=== PATIENT | male | born 1985 | race Caucasian/White ===

== ENCOUNTER 2024-06-23 08:06 | Outpatient (AMB) | payer OTHER, SELFPAY ==
--- NOTE | 2024-06-23 08:10 | A.OFFVIS_ITS ---
Intake Visit Reasons: left sided vericocele/testicular dullness Intake Note: New Patient presents for initial visit for left sided vericocele Urology Medications: none Blood Thinner: none Movers Required: No Accompanied by: Self / Same As Patient Allergies No Known Allergies Allergy (Verified 06/23/24 12:18) Medication List - Last Reconciled 06/23/24 by ANTOLIN Mederos bupropion HCl XL 150 mg PO DAILY HPI Comments Details: Shira is a very pleasant 39-year-old male patient of . He has a past medical history of depression. He presents to the office today as a new patient for varicoceles. In discussion with the patient today reports a longstanding history of varicoceles and previously followed up with a urologist over 20 years ago as they have been present for many years. He reports following up with his PCP at which time recommendations were made for urology referral for surveillance monitoring. He reports he does have discomfort left side greater than right in the scrotal area however does not feel that affects his activities of daily living. 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 He currently denies pain at this time. On exam today bilateral varicoceles are present left side greater than right otherwise no open areas, lesions, and or drainage noted. Small epididymal head cysts palpated on the left side. He otherwise denies any bothersome urinary issues. He denies urinary urgency, urinary frequency, incontinence, nocturia, hematuria, dysuria, foul smelling urine, changes to urinary stream, flank pain, fever, and or chills. He is happy with his current voiding parameters. We discussed at length potential causes of varicoceles and further treatment options. Risks and benefits of these interventions were discussed. All questions were answered. He otherwise offers no other issues or concerns at this time. [facility] Medical History Depression Review of Systems Const All systems reviewed & are unremarkable except as noted in HPI and below Physical Exam Const General: cooperative, healthy appearing, comfortable, no acute distress, well developed, alert and awake Nutritional Appearance: average body habitus Orientation/consciousness: patient oriented x3 Limitations: no limitations HEENT Head: Yes normal to inspection, Yes normocephalic and Yes atraumatic Ears: hearing grossly normal bilaterally Eyes General: appearance normal, both eyes and all related structures Neck Neck: Yes normal visual inspection and Yes trachea midline Chest Chest palpation & inspection: normal inspection of the chest Resp Effort & Inspection: normal respiratory effort and able to speak in complete sentences Cardio Rate: regular rate GI Inspection: Yes normal to inspection General: Yes no CVA tenderness Back/Spine/Pelvis Back: no CVA tenderness Skin General skin exam: no rashes or lesions noted Neuro General: patient oriented x3 Extrem General: Yes normal to inspection Psych Appearance: grossly normal and well kempt Mental Status: mental status grossly normal Speech and movement: Normal speech and movement present and Clear speech present Affect: normal affect Attitude: cooperative Thought process: Normal thought process present Thought content: Normal thought content present Insight: Fair insight present (Psych) Judgement: Fair judgement present (Psych) Assessment & Plan Assessment & Plan (1) Bilateral varicoceles: Code(s): I86.1 - Scrotal varices Category: Medical Plan Discussed at length potential causes of varicoceles as well as further treatment options; risks and benefits of these interventions were discussed. He currently denies any bothersome urinary issues. He reports be happy with current voiding parameters. He would like to continue with surveillance monitoring. Will obtain scrotal ultrasound in 6 months. Follow-up in 6 months with imaging to be completed prior; or sooner with any issues, concerns, and or questions. Orders: Orders US scrotum Today I86.1 - Scrotal varices Patient Instructions: The patient had an opportunity to ask questions regarding the treatment plan. A ll questions were answered. Physical exam, labs, and imaging were discussed and reviewed in detail. As well as risks, benefits, and discussion of treatment choices. No major barriers to understanding were identified. The patient expressed understanding and agreement with the above treatment plan. The patient was made aware they should contact our office by phone for worsening of their current condition, the appearance of new symptoms, or with any questions or concerns. Compliance is encouraged with any medications and follow up testing that is ordered. It is a privilege to be allowed the opportunity to participate in? your urological care.? Again, if you have any questions or concerns If you have any questions or concerns please do not hesitate to contact me. The office is [phone]. This note is constructed using voice recognition software. While every effort has been made to ensure accuracy high pressure boiler operator errors may have been included. Yours sincerely, EMIR Mederos Coding Level of Care Code New Pt Level 3 (79194) Diagnoses Bilateral varicoceles I86.1
== END 2024-06-23 08:54 | disposition home or self-care (01) ==
LOC: HO.HUSH 08:06
PROVIDERS: PCP Physician Assistant; Visit Provider Nurse Practitioner Family
DX: I86.1 Scrotal varices (principal)
CPT/HCPCS: 99203

== ENCOUNTER 2024-12-10 14:43 | Outpatient (REF) | payer OTHER, SELFPAY ==
--- NOTE | ~2024-12-10 | US_ITS ---
CLINICAL HISTORY: I86.1 - Scrotal varices US scrotum with Color and Duplex doppler. Comparison: None Technique: Real time sonographic imaging, including color-flow imaging, was performed by the signaler. Multiple energy conservation representative static images were saved for review. Findings: Right testicle normal size and echotexture, 4.8 x 2.6 x 3.2 cm. Normal color flow. Normal arterial and venous spectral doppler waveforms. No testicular microlithiasis or intratesticular masses. Left testicle normal size and echotexture, 4.0 x 2.1 x 2.9 cm. Normal color flow. Normal arterial and venous spectral doppler waveforms. Minimal testicular microlithiasis. No intratesticular masses. 3 mm incidental epididymal cysts on the right Small probable physiologic hydroceles Bilateral varicoceles [id number]-right varicoceles. Impression: 1. Bilateral varicoceles. 2. 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 This document has been electronically signed by: Raffy Blackwood MD on 12/11/2024 12:14:12
== END 2024-12-10 14:44 | disposition home or self-care (01) ==
LOC: HO.US 14:43
PROVIDERS: PCP Physician Assistant; Visit Provider Nurse Practitioner Family
DX: I86.1 Scrotal varices (principal)
CPT/HCPCS: 76870

== ENCOUNTER → 2024-12-10 14:46 | Outpatient (BNV) | payer OTHER, SELFPAY | PROVIDERS: PCP Physician Assistant; Visit Provider Radiology Diagnostic Radiology | DX: I86.1 Scrotal varices (principal) | CPT/HCPCS: 76870; 93975 ==

== ENCOUNTER 2024-12-21 09:36 | Outpatient (AMB) | payer OTHER, SELFPAY ==
--- NOTE | 2024-12-21 09:38 | A.OFFVIS_ITS ---
Intake Visit Reasons: 6 month follow up/ US(set) Intake Note: Patient presents for a 6 month follow up/US Urology Medications: none Blood Thinner: none Machine Feed Operator Required: No Accompanied by: Self / Same As Patient Allergies No Known Allergies Allergy (Verified 12/21/24 09:38) HPI Comments Details: Shira is a very pleasant 39-year-old male patient of . He has a past medical history of depression. He presents to the office today for follow-up of his bilateral varicoceles as well as right-sided epididymal head cysts. In discussion with the patient today reports to be doing and feeling well. He denies having had any bothersome urological issues or concerns since his last office visit here. Patient with a longstanding history of varicoceles for over 20 years. Recent scrotal imaging results reviewed with the patient today 12/11 bilateral testicles are normal in size and echotexture. 3 mm incidental epididymal head cyst on the right. Bilateral varicoceles left side greater than right. We discussed at length potential causes of varicoceles as well as epididymal head cyst as well as further interventions and risks and daquan efits of these interventions. He would like to continue with surveillance monitoring at this time. In assessment of the patient today the penis is uncircumcised in bilateral varicoceles are present left side greater than right. No open areas, lesions, and or drainage noted throughout the area. He otherwise denies any bothersome urinary issues. He denies urinary urgency, urinary frequency, incontinence, nocturia, hematuria, dysuria, foul smelling urine, changes to urinary stream, flank pain, fever, and or chills. He is happy with his current voiding parameters. We discussed at length potential causes of varicoceles and further treatment options. All questions were answered. He otherwise offers no other issues or concerns at this time. [facility] Medical History Depression Review of Systems Const All systems reviewed & are unremarkable except as noted in HPI and below Physical Exam Const General: cooperative, healthy appearing, comfortable, no acute distress, well developed, alert and awake Nutritional Appearance: average body habitus Orientation/consciousness: patient oriented x3 Limitations: no limitations HEENT Head: Yes normal to inspection, Yes normocephalic and Yes atraumatic Ears: hearing grossly normal bilaterally Eyes General: appearance normal, both eyes and all related structures Neck Neck: Yes normal visual inspection and Yes trachea midline Chest Chest palpation & inspection: normal inspection of the chest Resp Effort & Inspection: normal respiratory effort and able to speak in complete sentences Cardio Rate: regular rate GI Inspection: Yes normal to inspection General: Yes no CVA tenderness Penis: normal penis and uncircumcised Meatus: meatus normal Scrotum: Varicocele present (Bilateral left side greater than right) Testes: Testes normal Back/Spine/Pelvis Back: no CVA tenderness Skin General skin exam: no rashes or lesions noted Neuro General: patient oriented x3 Extrem General: Yes normal to inspection Psych Appearance: grossly normal and well kempt Mental Status: mental status grossly normal Speech and movement: Normal speech and movement present and Clear speech present Affect: normal affect Attitude: cooperative Thought process: Normal thought process present Thought content: Normal thought content present Insight: Fair insight present (Psych) Judgement: Fair judgement present (Psych) Results Reviewed Results Reviewed: Date of Service: 12/10/24 Procedure(s): US scrotum Technique: Real time sonographic imaging, including color-flow imaging, was performed by the department mgr. Multiple insurance verification representative static images were saved for review. Findings: Right testicle normal size and echotexture, 4.8 x 2.6 x 3.2 cm. Normal color flow. Normal arterial and venous spectral doppler waveforms. No testicular microlithiasis or intratesticular masses. Left testicle normal size and echotexture, 4.0 x 2.1 x 2.9 cm. Normal color flow. Normal arterial and venous spectral doppler waveforms. Minimal testicular microlithiasis. No intratesticular masses. 3 mm incidental epididymal cysts on the right Small probable physiologic hydroceles Bilateral varicoceles witp-[id number]-right varicoceles. Impression: 1. Bilateral varicoceles. 2. 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 Assessment & Plan Assessment & Plan (1) Bilateral varicoceles: Code(s): I86.1 - Scrotal varices Category: Medical (2) Epididymal cyst: Code(s): N50.3 - Cyst of epididymis Category: Medical Plan Discussed at length potential causes of varicoceles as well as further treatment options; risks and benefits of these interventions were discussed. He currently denies any bothersome urinary issues. He reports be happy with current voiding parameters. He would like to continue with surveillance monitoring. Follow-up in 1 year; or sooner with any issues, concerns, and or questions. Orders: Orders AMB Urinalysis Automated Today Z13.9 - Encounter for screening, unspecified Patient Instructions: The patient had an opportunity to ask questions regarding the treatment plan. All questions were answered. Physical exam, labs, and imaging were discussed and reviewed in detail. As well as risks, benefits, and discussion of treatment choices. No major barriers to understanding were identified. The patient expressed understanding and agreement with the above treatment plan. The patient was made aware they should contact our office by phone for worsening of their current condition, the appearance of new symptoms, or with any questions or concerns. Compliance is encouraged with any medications and follow up testing that is ordered. It is a privilege to be allowed the opportunity to participate in? your urological care.? Again, if you have any questions or concerns If you have any questions or concerns please do not hesitate to contact me. The office is [phone]. This note is constructed using voice recognition software. While every effort has been made to ensure accuracy manufacturing millwright errors may have been included. Yours sincerely, EMIR Mederos Coding Level of Care Code Est Pt Level 3 (69399) Diagnoses Bilateral varicoceles I86.1 Epididymal cyst N50.3
--- OUTSIDE RECORDS SUMMARY | 2024-12-21 10:27 | XMS_ITS | Clinical Summary ---
Author Organization [facility] Address [address] [place] [address] Care Team Providers Care Director Part Name Role Phone Juan Summers Primary Care Provider [phone] Source Comments PLEASE NOTE, if this patient is a minor, it may be UNLAWFUL to discuss sensitive information that is contained in these records (such as FAMILY PLANNING, MENTAL HEALTH or SUBSTANCE ABUSE) with the minor patient's parent or other person without the patient's specific authorization.[facility] Allergies No known active allergies Medications terbinafine HCL (LAMISIL) 250 mg tabletIndicatio ns:Onychomycosi s Take 1 Tablet by mouth once daily 42 Tablet 1 1 Active nicotine (NICODERM CQ) 14 mg/24 hr patchIndication s:Encounter for smoking cessation counseling Place 1 Patch onto the skin once daily (every 24 hours) 28 Patch 1 2 Active nicotine (NICODERM CQ) 14 mg/24 hr patchIndication s:Encounter for smoking cessation counseling Place 1 Patch onto the skin once daily (every 24 hours) 28 Patch 1 2 Active nicotine, polacrilex, (NICORETTE) 4 mg gum Take 1 Each by mouth as needed for smoking cessation for up to 30 days 110 Each 2 Active buPROPion XL (WELLBUTRIN XL) 150 mg 24 hr tablet Take 1 Tablet by mouth every morning for 120 days 90 Tablet 1 4 Active hydrOXYzine HCL (ATARAX) 25 mg tablet Take 1 Tablet by mouth once daily as needed for anxiety for up to 90 days 90 Tablet 4 Active Active Problems Problem Noted Date Diagnosed Date Persistent depressive disorder 12/20/2023 Major depressive disorder, r ecurrent episode, mild with anxious distress ([facility] V24) 05/22/2022 Immunizations Immunization Administration Dates Next Due INFLUENZA, SEASONAL, INJECTABLE 05/25/2015,10/23 TDAP 10/23/2013 Family History Medical History Relation Name Comments Depression Father Alcohol/Drug Abuse Mother Depression Mother Relation Name Status Comments Father Alive Mother Alive Social History Tobacco Use Types Packs/Day Years Used Date Smoking Tobacco: Every Day Cigars Smokeless Tobacco: Never Tobacco Cessation:Ready to Q uit: Not Asked; Counseling Given: Not Answered Comments:Smoke 2 cigars a day (equivalent to 8 cigarettes) Alcohol Use Standard Drinks/Week Comments Not Currently 0 (1 standard drink = 0.6 oz pur e alcohol) quit on Mar 2020 Social Connections Answer Date Recorded Connectedness 0 02/27/2022 Financial Resource Strain Answer Date R ecorded Financial Resource Strain 0 2021 Stress Answer Date Recorded Stress 0 02/27/2022 Physical Activity Answer Date Recorded Physical Activity 0 04/19/2021 Food Insecurity Answer Date Recorded Food 0 02/27/2022 Transportation Needs Answer Date Record ed Transportation 0 02/27/2022 Housing Stability Answer Date Recorded Housing 0 02/27/2022 Safety and Environment Answer Date Chandrakant rded Safety 0 02/27/2022 Utilities Answer Date Recorded Utilities 0 02/27/2022 Employment Answer Date Recorded Employment 0 04/19/2021 Sex and Gender Information Value Date Recorded Sex Assigned at Male 04/19/2021 7:54 AM PDT Legal Sex Male 10:50 AM PDT Gender Identity Male 04/19/2021 7:54 AM PDT Sexual Orientation Straight 04/19/2021 7: 54 AM PDT Last Filed Vital Signs Vital Sign Reading Time Taken Comments Blood Pressure 126/79 02/27/2022 2:38 PM EDT Pulse 78 02/27/2022 2:38 PM EDT Temperature 36.7 ??C (98.1 ??F) 02/27/2022 2:38 PM ED T Respiratory Rate 18 02/27/2022 2:38 PM EDT Oxygen Saturation 98% 02/27/2022 2:38 PM EDT Inhaled Oxygen Concentration - - Weight 78 kg (172 lb) 02/27/2022 2:38 PM EDT Height 180.3 cm (5' 11 ) 02/27/2022 2:38 PM EDT Body Mass Index 23.99 02/27/2022 2:38 PM EDT Plan of Treatment Health Maintenance Due Date Last Done Comments Anxiety Screening 1986 LTBI Screening (#1) 1986 Imm-Hepatitis B (1 of 3 - 19 + 3-dose series) 2005 Imm-Pneumococcal (1 of 2 - PCV) 2005 Annual Preventive Care Visit 04/19/2022 04/19/2021 Depression Monitoring 01/25/2023 10/25/2022 , 07/10/2022, 02/27/2022, Additional history exists Imm-DTaP/Tdap/Td (2 - Td or Tdap) 10/24/2023 014 [id number] ( season) 2024 Imm-Influenza (#1) 2024 05/25/2015, 10/23/2013 Alcohol and Drug Screen 08/19/2024 02/28/20, 08/22/2021, 04/19/2021 Tobacco Cessation Counseling (#1) 12/18/2024 12/19/2023, 05/30/2022, 02/27/2022, Additional history exists Hypertension Screening (#1) 02/26/2025 Diabetes Screening 03/27/2025 03/27/2022, 0 05/05/2021, 04/17/2021 HIV Screening Completed 05/05/2021 Hepatitis C Screening Completed 05/05/2021 Procedures Procedure Name Priority Date/Time Associated Diagnosis Comments IMAGING SCANNED DOCUMENT 12/10/2024 3:00 AM EDT IMAGING SCANNED DOCUMENT 12/10/2024 3:00 AM EDT COMPREHENSIVE METABOLIC PANEL Routine 03/27/2022 4:03 PM EDT Major depressive disorder, recurrent episode, mild with anxious distress (HCC-CMS) HIV 1/2 AG & AB W/RFLX (4TH GEN) Routine 05/05/2021 12:23 PM EDT Routine adult health maintenance HEPATITIS C AB W/RFLX HCV RNA, QT, RT PCR Routine 05/05/2021 12:23 PM EDT Routine adult health maintenance from Last 3 Months or Most Recently Relevant to Health Maintenance Results * IMAGING SCANNED DOCUMENT (12/10/2024 3:00 AM EDT) Only the most recent of2 resultswithin the time period is included. 12/10/2024 3:00 AM EDT Juan Summers PA SCAN IMAGING Final Result * (ABNORMAL) COMPREHENSIVE METABOLIC PANEL (03/27/2022 4:03 PM EDT) Pathologist [facility] GLUCOSE 85 65 - 99 mg/dL [facility] Comment: ?Fasting reference interval UREA NITROGEN (BUN) 13 7 - 25 mg/dL [facility] CREATININE (blood) 0.97 0.60 - 1.26 mg/dL [facility] EGFR 104 > OR = 60 mL/min/1 .73m2 [facility] Comment: The eGFR is based on the CKD-EPI 2020 equation. To calculate the new eGFR from a previous Creatinine or Cystatin C result, go to https://www.kidney.org/professionals/ kdoqi/gfr%5Fcalculator BUN/CREATININE RATIO NOT APPLICABLE 6 - 22 [facility] SODIUM 140 135 - 146 mmol/L [facility] POTASSIUM 4.8 3.5 - 5.3 mmol/L [facility] CHLORIDE 105 98 - 110 mmol/L [facility] CARBON DIOXIDE 28 20 - 32 mmol/L [facility] CALCIUM 9.8 8.6 - 10.3 mg/dL [facility] PROTEIN, TOTAL 7.2 6.1 - 8.1 g/dL [facility] ALBUMIN 4.7 3.6 - 5.1 g/dL [facility] GLOBULIN 2.5 1.9 - 3.7 g/dL (calc) [facility] ALBUMIN/GLOBUL IN RATIO 1.9 1.0 - 2.5 (calc) [facility] BILIRUBIN, TOTAL 0.8 0.2 - 1.2 mg/dL [facility] ALKALINE PHOSPHATASE 26(L) 36 - 130 U/L [facility] AST 20 10 - 40 U/L [facility] ALT 14 9 - 46 U/L [facility] Blood Blood / Unknown 03/27/2022 4 :03 PM EDT 03/27/2022 4:03 PM EDT Nikunj Spears PMHNP LAB - BLOOD DRAW Edited Resu lt - Final Performing Organization Address [facility]/ZIP Co de Phone Number [facility] [address] [address], [facility] [address] [address] * HEPATITIS C AB W/RFLX HCV RNA, QT, RT PCR (05/05/2021 12:23 PM EDT) Pathologist [facility] HEPATITIS C ANTIBODY NON-REACT CRISTHIAN NON-REACT CRISTHIAN [facility] SIGNAL TO CUT-OFF 0.01 <1.00 [facility] Comment: HCV antibody was non-reactive. There is no laboratory evidence of HCV infection. In most cases, no further action is required. However, if recent HCV exposure is suspected, a test for HCV RNA (test code 88216) is suggested. For additional information please refer to http://education.Naiku/faq/GSI25o3 (This link is being provided for informational/ educational purposes only.) Blood Blood / Unknown 05/05/2021 1 2:23 PM EDT 05/05/2021 12:24 PM EDT Narrative [facility] - 05/06/2021 2:05 AM EDT FASTING:NO Juan PERDOMO LAB - BLOOD DRAW Edited Result - Final Performing Organization Address City/[facility]/ZIP Co de Phone Number [facility] [address] [address], [facility] [address] [address] * HIV 1/2 AG & AB W/RFLX (4TH GEN) (05/05/2021 12:23 PM EDT) HIV AG/AB, 4TH GEN NON-REAC TIVE NON-REAC TIVE [facility] Comment: HIV-1 antigen and HIV-1/HIV-2 antibodies were not detected. There is no laboratory evidence of HIV infection. PLEASE NOTE: This information has been disclosed to you from records whose confidentiality may be protected by state law. ??If your state requires such protection, then the state law prohibits you from making any further disclosure of the information without the specific written consent of the person to whom it pertains, or as otherwise permitted by law. A general authorization for the release of medical or other information is NOT sufficient for this purpose. ?? For additional information please refer to http://education.Naiku/faq/HTO259 (This link is being provided for informational/ educational purposes only.) The performance of this assay has not been clinically validated in patients less than 2 years old. Blood Blood / Unknown 05/05/2021 1 2:23 PM EDT 05/05/2021 12:24 PM EDT Narrative [facility] - 05/06/2021 2:05 AM EDT FASTING:NO Juan PERDOMO LAB - BLOOD DRAW Final Result [facility] [address] [address], [facility] [address] [address] from Last 3 Months or Most Recently Relevant to Health Maintenance Insurance [facility] Member Subscriber Plan / Payer (Ef fective 2020-Present) Name:Anant Worthy Relation to Subscriber:Self Name:Anant Worthy Payer ID:[id number] Type:Indemnity Address: [address] [address] Care Teams Director Part Relationship Specialty Start Date End Date Juan Summers PA [address] [place] [address] PCP - General Internal Medicine 03/03/21
== END 2024-12-21 10:06 | disposition home or self-care (01) ==
LOC: HO.HUSH 09:37
PROVIDERS: PCP Physician Assistant; Visit Provider Nurse Practitioner Family
DX: I86.1 Scrotal varices (principal); N50.3 Cyst of epididymis
CPT/HCPCS: 99213

== ENCOUNTER → 2024-12-21 09:36 | Outpatient (BNVA) | payer OTHER, SELFPAY | PROVIDERS: PCP Physician Assistant; Visit Provider Nurse Practitioner Family | DX: I86.1 Scrotal varices (principal); N50.3 Cyst of epididymis | CPT/HCPCS: 99212 ==